=== PATIENT | female | born 1970 | race Caucasian/White ===

== ENCOUNTER → 2021-05-31 | Outpatient (CLI) | payer BC ==
[~2021-05-31] VITALS: Ht 162.6 cm; Wt 74.0 kg
[~2021-05-31] MED LIST: POLY17PO6 PO; SPIR25TA3 PO; VILA20TA PO
== END | disposition home or self-care (01) ==
LOC: PREOP 05:34
PROVIDERS: ATTEND Internal Medicine
DX: Z01.818 Encounter for other preprocedural examination (principal)

== ENCOUNTER 2021-06-02 07:36 | Day surgery (SDC) | payer BC ==
[~2021-06-02] VITALS: Ht 162.6 cm; Wt 74.0 kg
[2021-06-02] MEDS ORDERED: LACTATED RINGERS 1,000 ML IV STA (07:38)
[2021-06-02] MEDS ORDERED: LACTATED RINGERS 1,000 ML IV ONE (07:45)
[2021-06-02] MEDS ORDERED: LIDOCAINE JELLY 2% 6 ML SYRINGE MM PRN (07:45)
[2021-06-02 08:00] VITALS: BP 138/62
--- NOTE | 2021-06-02 08:09 | Pre-Op Note & Conscious Sedat ---
Pre-Operative Progress Note H&P Reviewed The H&P was reviewed, patient examined and no changes noted. Date H&P Reviewed: Jun 02, 2021 Time H&P Reviewed: 08:08 Conscious Sedation Pre-Proced ASA Score 2 For ASA 3 and 4: Consider anesthesia and medical clearance. Also, for patients with a history of failed moderate sedation consider anesthesia. Airway Lungs Heart ASA score ASA 1: a normal healthy patient ASA 2: a patient with a mild systemic disease (mid diabetes, controlled hypertension, obesity ASA 3: a patient with a severe systemic disease that limits activity (angina, COPD, prior Myocardial infarction) ASA 4: a patient with an incapacitating disease that is a constant threat to life (CHF, renal failure) ASA 5: a moribund patient not expected to survive 24 hrs. (ruptured aneurysm) ASA 6: a declared brain- patient whose organs are being harvested. For emergent operations, add the letter E after the classification Mallampati Classification Grade 2 Sedation Plan Analgesia, Amnesia, Plan communicated to team members, Discussed options with patient/fam, Discussed risks with patient/fam The patient is an appropriate candidate to undergo the planned procedure, sedation, and anesthesia. The patient immediately re-assessed prior to indication. CHANDRA NULL MD Jun 02, 2021 08:09
[2021-06-02] MEDS ORDERED: PROPOFOL INJECTION 50 ML IV ONE (08:40)
[2021-06-02] MEDS ORDERED: MIDAZOLAM 2 MG/2 ML (VERSED) VIAL ONE (08:40)
[2021-06-02 09:18] VITALS: BP 111/63
[2021-06-02 09:23] VITALS: BP 107/62
[2021-06-02 09:30] VITALS: BP 109/63
[2021-06-02 09:55] VITALS: BP 121/74
[2021-06-02 09:59] VITALS: BP 121/74
--- NOTE | 2021-06-02 10:31 | Anesthesia-General Post-Op ---
MAC Patient Condition Mental Status/LOC: Same as Preop Cardiovascular: Satisfactory Nausea/Vomiting: Absent Respiratory: Satisfactory Pain: Controlled Complications: Absent Post Op Complications Complications None Follow Up Care/Instructions Patient Instructions None needed. Anesthesiology Discharge Order Discharge Order Patient is doing well, no complaints, stable vital signs, no apparent adverse anesthesia problems. No complications reported per nursing. MAGNOLIA MACDONALD CRNA Jun 02, 2021 10:31
--- NOTE | 2021-06-02 12:42 | OPERATIVE REPORT ---
DATE OF SERVICE: COLONOSCOPY SUMMARY INDICATION FOR THE PROCEDURE: Colonoscopy was performed for past history of colon polyps with intermittent bright red blood per rectum. DESCRIPTION OF PROCEDURE: The patient was placed in the left lateral decubitus position. Prior to undergoing colonoscopy, digital rectal evaluation was performed. Anal sphincter tone was normal and the perianal reflexes intact. There is a small scarred external hemorrhoid at the 4-5 o'clock position. There were no evidence for internal hemorrhoids and no other abnormalities were noted on digital inspection of anal canal or distal rectal vault. The colonoscope was then inserted into the rectum and under direct visualization advanced to cecum. The cecum was identified by identification of ileocecal valve and cecal strap. Photograph documentation was obtained. Careful inspection was made as the colonoscope withdrawn. FINDINGS: There was no evidence for internal hemorrhoids. Again, a small scarred external hemorrhoid was noted at the 4-5 o'clock position. The rectum was otherwise unremarkable. Present in the rectosigmoid junction was a diminutive hyperplastic-appearing polyp. It was removed via cold forceps in several bites with no subsequent bleeding. The remainder of the sigmoid colon, descending colon, splenic flexure, transverse colon, hepatic flexure, ascending colon, and cecum were unremarkable under good prep conditions. ASSESSMENT: One diminutive hyperplastic-appearing polyp was removed via cold forceps from the rectosigmoid junction. As long as there are no surprise on histopathology report, would advocate consideration for repeat screening colonoscopy in 10 years as the patient reports no family history for colon cancer. One small scarred external hemorrhoid was noted at the 4-5 o'clock position. The patient was reassured. I thank you for the referral of this pleasant lady. CC: GISELE Sotelo - requested, unable to deliver. Job ID: [id number] DocumentID: [id number] Dictated Date: 06/02/2021 10:02:17 Fiber Optic Technician Date: 06/02/2021 12:41:21 Dictated By: CHANDRA NULL MD
== END 2021-06-02 10:02 | disposition home or self-care (01) ==
LOC: ENDO 07:36
PROVIDERS: ATTEND Internal Medicine
DX: K63.5 Polyp of colon (principal); K62.5 Hemorrhage of anus and rectum; K64.4 Residual hemorrhoidal skin tags; Z80.0 Family history of malignant neoplasm of digestive organs